=== PATIENT | female | born 1990 | race African-American/Black ===

== ENCOUNTER 2021-01-27 21:17 | Emergency (ER) | payer SELFPAY ==
[2021-01-27 21:17] VITALS: BMI 39.6
[2021-01-27 22:05] VITALS: BP 95/68; PULSE 121
[2021-01-27 22:15] VITALS: BP 118/78; PULSE 122; RESP 16; TEMP 37.2; O2SAT 96; BMI 39.6
--- NOTE | 2021-01-27 23:00 | PC.NURSE ---
Facial Edema decreased at this time.
--- NOTE | 2021-01-27 23:04 | HMH.EDALLER ---
ED Disposition Clinical Impression: Allergic reaction Qualifiers: Encounter type: initial encounter Qualified Code(s): T78.40XA - Allergy, unspecified, initial encounter Disposition: Home, Self-Care Condition on Discharge: Good Instructions: DI for General Allergic Reactions Additional Instructions: use meds and see pcp for follow up Prescriptions: predniSONE [Prednisone 20mg Tab] 20 mg PO BID #10 tab Prescription Printed Referrals: PCP,No [Primary Care Provider] - - Critical Care Critical Care Time: No Attestation: On 01/27/21, the high probability of a clinically significant, sudden or life threatening deterioration of the following system(s) required my full and direct attention, intervention and personal management. The time I documented below is in addition to time spent performing reported procedures but includes the following listed in this critical care notation. Medical Decision Making - Medical Records Medical records reviewed: Yes: I reviewed the patient's medical records. - Jayjay Inquiry Pt receiving controlled substance: No Vital Signs: 01/27/21 22:05 01/27/21 22:15 Temperature 99 F Temperature Source Oral Pulse Rate 121 H Pulse Rate [Right] 122 H Respiratory Rate 16 Blood Pressure 95/68 L Blood Pressure [Right Arm] 118/78 Blood Pressure Mean 78 Blood Pressure Mean [Right Arm] 91 Blood Pressure Source [Right Arm] Automatic Cuff Blood Pressure Position [Right Arm] Supine 02 Sat by Pulse Oximetry 96 Oxygen Delivery Method Room Air Orders (Tests/Meds): ED MEDICATIONS Discontinued Medications Generic Name Dose Route Start Last Admin Trade Name Freq PRN Reason Stop Dose Admin Dexamethasone Sodium Phosphate 8 mg 01/27/21 21:37 01/27/21 21:59 Dexamethasone 4mg/Ml 1ml Vial IM 01/27/21 21:38 8 mg ONCE ONE Administration Diphenhydramine HCl 50 mg 01/27/21 22:27 01/27/21 21:45 Diphenhydramine 50mg/Ml Vial IV 01/27/21 22:28 50 mg ONCE ONE Administration - Reevaluation(s) Time: 03:07 Reevaluation #1: improved Medical Decision Narrative: pt doing better and able to tolerate fluids Allergic React/Insect Bite HPI - General Chief complaint: Allergic Reaction Stated complaint: Allergic reaction Time Seen by Provider: 01/27/21 22:10 Mode of Arrival - ED Triage: Ambulatory Source of Information: Patient, Medical Record Limitations: No Limitations - History of Present Illness HPI narrative: reported swollen tongue and periorbital area after taking sulfa complaint: allergic reaction Onset (ago): hour(s) Exposure: medication Symptoms: facial swelling, lip swelling, tongue swelling Treatment prior to arrival: none Allergies/Adverse Reactions: Allergies Allergy/AdvReac Type Severity Reaction Status Date / Time acetaminophen [From Tylenol] Allergy Verified 01/27/21 21:36 amoxicillin Allergy Verified 01/27/21 21:36 aspirin Allergy Verified 01/27/21 21:36 dyclonine Allergy Verified 01/27/21 21:36 haloperidol [From Haldol] Allergy Verified 01/27/21 21:36 ibuprofen [From Motrin] Allergy Verified 01/27/21 21:36 ketorolac [From Toradol] Allergy Verified 01/27/21 21:36 lisinopril Allergy Verified 01/27/21 21:36 metoclopramide [From Reglan] Allergy Verified 01/27/21 21:36 morphine Allergy Verified 01/27/21 21:36 peanut Allergy Verified 01/27/21 21:36 Penicillins Allergy Verified 01/27/21 21:36 prochlorperazine Allergy Verified 01/27/21 21:36 [From Compazine] sertraline [From Zoloft] Allergy Verified 01/27/21 21:36 shrimp Allergy Verified 01/27/21 21:36 Sulfa (Sulfonamide Allergy Verified 01/27/21 21:36 Antibiotics) tramadol Allergy Verified 01/27/21 21:36 Severity: moderate - Related Data Previous Rx's Medication Instructions Recorded predniSONE [Prednisone 20mg 20 mg PO BID #10 tab 01/28/21 Tab] [facility] History - Hepatitis A Screen Drug use history?: No
[2021-01-28 03:17] LABS: POC Glucose,Bedside 344 (70-110)
[2021-01-28 03:53] VITALS: BP 121/76; PULSE 98; RESP 16; TEMP 37.1; O2SAT 96
== END 2021-01-28 04:00 | disposition home or self-care (01) ==
PROVIDERS: Emergency Provider Emergency Medicine
DX: R60.0 Localized edema (principal); T37.0X5A Adverse effect of sulfonamides, initial encounter; E11.9 Type 2 diabetes mellitus without complications; Z88.1 Allergy status to other antibiotic agents; Z88.5 Allergy status to narcotic agent; Z88.8 Allergy status to other drugs, medicaments and biological substances
CPT/HCPCS: 82962; 96365; 96372; 99281